=== PATIENT | male | born 1980 | race Caucasian/White ===

== ENCOUNTER 2016-12-12 12:36 | Emergency (ER) | payer OTHER ==
[2016-12-12 12:48] VITALS: BP 143/84
[2016-12-12] MEDS ORDERED: NAPROXEN 250 MG TABLET PO ONE (12:56)
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
--- NOTE | 2016-12-12 13:41 | RADIOLOGY REPORT (SQ) ---
EXAM DESCRIPTION: SHOULDER RIGHT 2 OR MORE VIEWS COMPLETED DATE/TIME: 12/12/2016 1:18 pm REASON FOR STUDY: right shoulder injury COMPARISON: None. NUMBER OF VIEWS: Three views right shoulder. LIMITATIONS: None. FINDINGS: Normal bone density. No fracture or dislocation. Suspicious for AC separation. The dist al clavicle lies above the level of the acromion. Correlate with mechanism of injury. No pneumothor ax. OTHER: No other significant finding. IMPRESSION: AC separation. TECHNICAL DOCUMENTATION: JOB ID: [id number]
== END 2016-12-12 13:44 | disposition home or self-care (01) ==
LOC: ER 12:36
DX: S43.101A Unspecified dislocation of right acromioclavicular joint, initial encounter (principal); V18.9XXA Unspecified pedal cyclist injured in noncollision transport accident in traffic accident, initial encounter; M25.511 Pain in right shoulder
CPT/HCPCS: 99283

== ENCOUNTER 2019-06-12 17:30 | Emergency (ER) | payer OTHER ==
[2019-06-12 17:43] VITALS: BP 156/99
[2019-06-12] MEDS ORDERED: IBUPROFEN 800 MG TABLET PO ONE (18:32)
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
== END 2019-06-12 19:40 | disposition home or self-care (01) ==
LOC: ER 17:30
DX: M54.2 Cervicalgia (principal); M54.5 Low back pain; M25.512 Pain in left shoulder; V43.52XA Car driver injured in collision with other type car in traffic accident, initial encounter; W22.11XA Striking against or struck by driver side automobile airbag, initial encounter; R25.2 Cramp and spasm
CPT/HCPCS: 71046; 99283